=== PATIENT | female | born 1985 | race Caucasian/White ===

== ENCOUNTER 2016-11-06 12:26 | Emergency (ER) | payer OTHER ==
[~2016-11-06 12:26] MED LIST: PHENERGAN 25 MG25 M1 PO
[2017-03-27] MEDS ORDERED: GLUCOPHAGE1000 MG PO (08:26)
[2017-03-27] MEDS ORDERED: LISINOPRIL20 MG PO (08:26)
[2017-03-27] MEDS ORDERED: LEXAPRO20 MG PO (08:27)
[2017-03-27] MEDS ORDERED: NORCO 7.5-3251 EACH PO (12:28)
[2017-03-27] MEDS ORDERED: [UNRECOGNIZED DRUG - OTHER] TOP (12:29)
== END 2016-11-06 14:19 | disposition home or self-care (01) ==
LOC: ER1 12:26
DX: S63.615A Unspecified sprain of left ring finger, initial encounter (principal); W01.0XXA Fall on same level from slipping, tripping and stumbling without subsequent striking against object, initial encounter; Y92.009 Unspecified place in unspecified non-institutional (private) residence as the place of occurrence of the external cause; F41.9 Anxiety disorder, unspecified; F32.9 Major depressive disorder, single episode, unspecified; Z79.899 Other long term (current) drug therapy
CPT/HCPCS: 73130; 99283

== ENCOUNTER 2016-11-21 17:47 | Emergency (ER) | payer OTHER ==
[2016-11-21 20:29] LABS: HEMOGLOBIN 13.7 gm/dl (12.3-15.3); RED BLOOD COUNT 4.92 M/UL (4.00-5.10)
[2016-11-21 20:45] LABS: BUN/CREATININE RATIO 16 (0-10)
[2017-03-27] MEDS ORDERED: GLUCOPHAGE1000 MG PO (08:26)
[2017-03-27] MEDS ORDERED: LISINOPRIL20 MG PO (08:26)
[2017-03-27] MEDS ORDERED: LEXAPRO20 MG PO (08:27)
[2017-03-27] MEDS ORDERED: NORCO 7.5-3251 EACH PO (12:28)
[2017-03-27] MEDS ORDERED: [UNRECOGNIZED DRUG - OTHER] TOP (12:29)
== END 2016-11-21 23:29 | disposition home or self-care (01) ==
LOC: ER1 17:47
PROVIDERS: Physician Assistant
DX: R42 Dizziness and giddiness (principal); I10 Essential (primary) hypertension; E11.9 Type 2 diabetes mellitus without complications; Z90.49 Acquired absence of other specified parts of digestive tract; Z98.51 Tubal ligation status; Z79.899 Other long term (current) drug therapy
CPT/HCPCS: 36415; 70450; 71010; 80053; 81001; 82550; 82553; 83874; 84484; 84703; 85025; 93005; 96360; 99284

== ENCOUNTER → 2016-12-14 | Outpatient (CLI) | payer OTHER ==
[~2016-12-14] MED LIST changes: +GLUCOPHAGE1000 MG PO; +LEXAPRO20 MG PO; +LISINOPRIL20 MG PO; +NORCO 7.5-3251 EACH PO; +[UNRECOGNIZED DRUG - OTHER] TOP
== END ==
LOC: RAD 12:19
DX: R42 Dizziness and giddiness (principal); I10 Essential (primary) hypertension
CPT/HCPCS: 71020

== ENCOUNTER 2016-12-15 14:24 | Emergency (ER) | payer OTHER ==
[~2016-12-15 14:24] MED LIST changes: -GLUCOPHAGE1000 MG PO; -LEXAPRO20 MG PO; -LISINOPRIL20 MG PO; -NORCO 7.5-3251 EACH PO; -[UNRECOGNIZED DRUG - OTHER] TOP
[2016-12-15 15:36] LABS: RED BLOOD COUNT 5.02 M/UL (4.00-5.10); WHITE BLOOD COUNT 9.7 K/UL (4.5-11.0)
[2016-12-15 16:05] LABS: BUN/CREATININE RATIO 17 (0-10)
[2017-03-27] MEDS ORDERED: GLUCOPHAGE1000 MG PO (08:26)
[2017-03-27] MEDS ORDERED: LISINOPRIL20 MG PO (08:26)
[2017-03-27] MEDS ORDERED: LEXAPRO20 MG PO (08:27)
[2017-03-27] MEDS ORDERED: NORCO 7.5-3251 EACH PO (12:28)
[2017-03-27] MEDS ORDERED: [UNRECOGNIZED DRUG - OTHER] TOP (12:29)
== END 2016-12-15 16:47 | disposition home or self-care (01) ==
LOC: ER1 14:24
PROVIDERS: Nurse Practitioner Family
DX: R42 Dizziness and giddiness (principal); R79.89 Other specified abnormal findings of blood chemistry; E10.65 Type 1 diabetes mellitus with hyperglycemia; I10 Essential (primary) hypertension; F41.9 Anxiety disorder, unspecified; F32.9 Major depressive disorder, single episode, unspecified; Z79.899 Other long term (current) drug therapy
CPT/HCPCS: 36415; 80053; 81001; 82550; 82553; 83874; 84443; 84484; 84703; 85025; 93005; 99283

== ENCOUNTER → 2017-03-15 | Outpatient (CLI) | payer OTHER | LOC: KOH-I 11:19 | DX: R10.32 Left lower quadrant pain (principal); K76.0 Fatty (change of) liver, not elsewhere classified | CPT/HCPCS: 74176 ==

== ENCOUNTER 2020-09-21 11:20 | Emergency (ER) | payer OTHER ==
[~2020-09-21 11:20] MED LIST changes: +BACTRIM DS TAB1 EACH PO; +BENTYL 20MG TAB20 MG PO; +FLEXERIL 10 MG10 MG PO; +GLUCOPHAGE1000 MG PO; +IBUPROFEN600 MG PO; +IBUPROFEN800 MG PO; +LEXAPRO20 MG PO; +LISINOPRIL20 MG PO; +MACROBID 100 M100 MG PO; +MEDROL4 MG PO; +NAPROSYN500 MG PO; +NORCO 5-325 TA1 EACH PO; +NORCO 7.5-3251 EACH PO; +PENVEE K 500 M500 MG PO; +PERCOCET 5/325 T1 EA PO; +PROVENTIL HFA6.7 GM INH; +TESSALON PERLE100 MG PO; +Voltaren Gel 1 % TOP; +ZITHROMAX250 MG PO; +ZOFRAN ODT 4 MG4 MG PO; +ZOFRAN4 MG PO; +[UNRECOGNIZED DRUG - OTHER] TOP
[2020-09-21 12:37] LABS: HEMOGLOBIN 14.2 gm/dl (12.3-15.3); RED BLOOD COUNT 4.86 M/UL (4.00-5.10); WHITE BLOOD COUNT 8.5 K/UL (4.5-11.0)
[2020-09-21 13:00] LABS: BUN/CREATININE RATIO 12 (0-10)
== END 2020-09-21 15:08 | disposition home or self-care (01) ==
LOC: ER1 11:20
PROVIDERS: Emergency Medicine
DX: R07.89 Other chest pain (principal)
CPT/HCPCS: 71045; 80053; 82550; 82553; 83874; 84484; 85025; 93005; 99285

== ENCOUNTER 2021-06-21 10:49 | Emergency (ER) | payer OTHER ==
[2021-06-21 12:47] LABS: HEMOGLOBIN 14.6 gm/dl (12.3-15.3); RED BLOOD COUNT 4.98 M/UL (4.00-5.10); WHITE BLOOD COUNT 10.3 K/UL (4.5-11.0)
[2021-06-21 13:09] LABS: BUN/CREATININE RATIO 12 (0-10)
[2021-06-21] MEDS ORDERED: OMNICEF 300 MG300 MG PO (16:57)
== END 2021-06-21 18:15 | disposition home or self-care (01) ==
LOC: ER1 10:49
PROVIDERS: Physician Assistant
DX: N39.0 Urinary tract infection, site not specified (principal)
CPT/HCPCS: 80053; 81001; 83690; 84703; 85025; 87086; 96372; 99284; J1885; Q9967

== ENCOUNTER 2021-12-05 10:52 | Emergency (ER) | payer OTHER ==
[~2021-12-05 10:52] MED LIST changes: +OMNICEF 300 MG300 MG PO
[2021-12-05] MEDS ORDERED: AMOX TR-K CLV1 EAC4 PO (12:28)
== END 2021-12-05 12:42 | disposition home or self-care (01) ==
LOC: ER1 10:52
DX: S91.351A Open bite, right foot, initial encounter (principal); L03.115 Cellulitis of right lower limb; W55.41XA Bitten by pig, initial encounter
CPT/HCPCS: 73630; 99283

== ENCOUNTER → 2021-12-15 | Outpatient (CLI) | payer OTHER ==
[~2021-12-15] MED LIST changes: +AMOX TR-K CLV1 EAC4 PO
== END ==
LOC: RAD 11:55
DX: S91.331A Puncture wound without foreign body, right foot, initial encounter (principal)
CPT/HCPCS: 73630

== ENCOUNTER 2022-02-03 19:49 | Emergency (ER) | payer OTHER | END 2022-02-04 00:11 | disposition home or self-care (01) | LOC: ER1 19:49 | DX: G89.18 Other acute postprocedural pain (principal); M79.671 Pain in right foot; E11.9 Type 2 diabetes mellitus without complications | CPT/HCPCS: 99283 ==